=== PATIENT | male | born 1950 | race Caucasian/White ===

== ENCOUNTER 2016-10-28 09:09 | Outpatient (RCR) | payer MEDICARE ==
[2016-10-28 09:54] LABS: MEAN CORPUSCULAR HGB CONC 33.3 g/dL (31.0-37.0); PLATELET COUNT 206 10^3uL (150-450); WHITE BLOOD COUNT 5.13 10^3uL (4.0-11.0)
[2016-10-28 10:07] LABS: MEAN CORPUSCULAR HEMOGLOBIN 34.7 PG (26.0-34.0); MEAN CORPUSCULAR VOLUME 104 FL (80-100)
[2016-10-28 11:02] LABS: SEGMENTED NEUTROPHILS % 58 % (51-67)
[2016-10-28 11:03] LABS: ANISOCYTOSIS SLIGHT; BAND NEUTROPHILS % 2 % (0-6); EOSINOPHILS % 3 % (0-4); LYMPHOCYTES # 0.8 #; MONOCYTES # 1.1 #; MONOCYTES % 22 % (3-11); RBC MORPH SEE REFERENCE (NORMAL); TOTAL CELLS COUNTED 100
[2016-11-26 09:13] LABS: MEAN CORPUSCULAR HGB CONC 33.8 g/dL (31.0-37.0); MEAN PLATELET VOLUME 9.3 FL (6.0-9.5); PLATELET COUNT 194 10^3uL (150-450); WHITE BLOOD COUNT 10.03 10^3uL (4.0-11.0)
[2016-11-26 09:20] LABS: MEAN CORPUSCULAR HEMOGLOBIN 34.8 PG (26.0-34.0); MEAN CORPUSCULAR VOLUME 103 FL (80-100)
[2016-11-26 09:23] LABS: ALBUMIN 3.8 g/dL (3.4-5.0); ANION GAP 14.3 MEQ/L (3-15); CALCULATED IONIZED CALCIUM 4.5 mg/dL (3.8-4.6); PHOSPHORUS 4.5 mg/dL (2.4-4.9); TOTAL PROTEIN 5.9 g/dL (6.4-8.5)
[2016-11-26 10:18] LABS: BAND NEUTROPHILS % 0 % (0-6); EOSINOPHILS % 2 % (0-4); LYMPHOCYTES # 1.5 #; MONOCYTES # 1.2 #; MONOCYTES % 12 % (3-11); RBC MORPH NORMAL (NORMAL); SEGMENTED NEUTROPHILS % 71 % (51-67); TOTAL CELLS COUNTED 100
== END 2016-11-26 22:00 | disposition home or self-care (01) ==
LOC: LAB 09:09
PROVIDERS: ATTEND Internal Medicine Hematology & Oncology
DX: C20 Malignant neoplasm of rectum (principal)
CPT/HCPCS: 36415; 80053; 82378; 83615; 83735; 84100; 85007; 85025; 85027

== ENCOUNTER → 2016-11-28 | Outpatient (CLI) | payer MEDICARE ==
[~2016-11-28] MED LIST: ACYC200C PO; AMIO200T2 PO; ATOR40TA2 PO; CALC625T PO; CARV25TA30 PO; CHOL5POW MC; CLPD75T PO; DIGO250T PO; FERR-74 PO; HYDR-3702 PO; LSNP10T PO; LVT.1T PO; MAGN250T35 PO; METO25TA60 PO; NITR0.4T7 SL; ONDA8TAB13 PO; PRED20TA PO; WARF6TAB3 PO; WRF2T PO
--- NOTE | 2016-11-28 10:11 | Diagnostic Imaging Report ---
PROCEDURE: CT chest pelvis with and abdomen with and without contrast. TECHNIQUE: Multiple contiguous axial images were obtained through the chest, abdomen and pelvis after uneventful bolus administration of intravenous contrast. Precontrast acquisitions were acquired through the abdomen. INDICATION: Rectal carcinoma. COMPARISON: 02/28/2016. FINDINGS: THORAX: No pathologically enlarged lymph nodes are visible in the axilla, mediastinum or jackie. No pericardial or pleural effusion is identified. No pulmonary mass is identified. In the right lower lobe, areas of subpleural alveolar opacity are present. An ICD is present with the tip in the right ventricle. No osseous lesion is identified. Chronic elevation of the left hemidiaphragm is present. IMPRESSION: 1. Areas of subpleural alveolar opacity in the right lower lobe of undetermined etiology. Pneumonitis could produce this appearance. No evidence for metastasis. ABDOMEN AND PELVIS: COMPARISON: 02/28/2016. Comparing the hepatic lesions with the prior examination is difficult because the prior study was done in the arterial phase only. In the superior left lobe of the liver, a 2.1 x 1.2 cm mass is present. Previously, this mass was more solid-appearing. In the inferior lateral right lobe of the liver, a solid mass was identified measuring about 1.3 x 0.9 cm, currently 1.3 x 0.7 cm. Previously, solid mass was seen in the posterior subcapsular right lobe measuring 1.1 cm. On today's examination, this is measuring about 0.7 cm. 5 mm low-density area is noted in the medial segment of the left lobe and there are additional 6 and 4 mm hypodensities in the posterior right lobe. It is difficult to determine whether these have decreased in size since prior examination. The adrenal glands and pancreas are negative. No renal lesions are seen. The aorta was negative. No pathologically enlarged lymph nodes are seen in the gastrohepatic or gastrosplenic ligament. The periportal and retroperitoneal lymph nodes are negative. Mesenteric, iliac and inguinal lymph nodes remain negative. 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 No osteolytic lesion is seen. IMPRESSION: 1. Slight interval decrease in size of the hepatic lesions compared to prior study. Dictated by: Dictated on workstation # [id number]
== END ==
LOC: RAD 07:57
PROVIDERS: ATTEND Internal Medicine Hematology & Oncology
DX: C20 Malignant neoplasm of rectum (principal)
CPT/HCPCS: 71260; 74178; Q9967

== ENCOUNTER 2017-01-14 12:35 | Outpatient (RCR) | payer MEDICARE ==
[2017-01-14 12:36] LABS: BASOPHILS % (AUTO) 1 % (0-2); EOSINOPHILS # (AUTO) 0.1 10^3uL; EOSINOPHILS % (AUTO) 1 % (0-4); LYMPHOCYTES # (AUTO) 0.7 X10^3; MEAN CORPUSCULAR HEMOGLOBIN 33.7 PG (26.0-34.0); MEAN CORPUSCULAR HGB CONC 34.1 g/dL (31.0-37.0); MEAN CORPUSCULAR VOLUME 99 FL (80-100); MEAN PLATELET VOLUME 8.9 FL (6.0-9.5); MONOCYTES % (AUTO) 9 % (3-11); NEUTROPHILS # (AUTO) 9.2 X10^3; NEUTROPHILS % (AUTO) 82 % (51-67); PLATELET COUNT 221 10^3uL (150-450); WHITE BLOOD COUNT 11.19 10^3uL (4.0-11.0)
[2017-02-03 10:29] LABS: MEAN CORPUSCULAR HGB CONC 32.9 g/dL (31.0-37.0); MEAN PLATELET VOLUME 8.6 FL (6.0-9.5); PLATELET COUNT 218 10^3uL (150-450); WHITE BLOOD COUNT 5.07 10^3uL (4.0-11.0)
[2017-02-03 10:32] LABS: MEAN CORPUSCULAR HEMOGLOBIN 32.3 PG (26.0-34.0); MEAN CORPUSCULAR VOLUME 98 FL (80-100)
[2017-02-03 10:59] LABS: BAND NEUTROPHILS % 1 % (0-6); EOSINOPHILS % 5 % (0-4); LYMPHOCYTES # 0.9 #; MONOCYTES # 1.2 #; MONOCYTES % 24 % (3-11); RBC MORPH NORMAL (NORMAL); SEGMENTED NEUTROPHILS % 53 % (51-67); TOTAL CELLS COUNTED 100
[2017-02-25 09:55] LABS: MEAN CORPUSCULAR HGB CONC 33.6 g/dL (31.0-37.0); MEAN CORPUSCULAR VOLUME 96 FL (80-100); MEAN PLATELET VOLUME 8.8 FL (6.0-9.5); PLATELET COUNT 285 10^3uL (150-450); WHITE BLOOD COUNT 4.27 10^3uL (4.0-11.0)
[2017-02-25 09:57] LABS: MEAN CORPUSCULAR HEMOGLOBIN 32.3 PG (26.0-34.0)
[2017-02-25 10:22] LABS: BAND NEUTROPHILS % 6 % (0-6); EOSINOPHILS % 1 % (0-4); LYMPHOCYTES # 1.1 #; MONOCYTES # 1.1 #; MONOCYTES % 28 % (3-11); RBC MORPH NORMAL (NORMAL); SEGMENTED NEUTROPHILS % 39 % (51-67); TOTAL CELLS COUNTED 100
[2017-02-25 10:27] LABS: ALBUMIN 3.9 g/dL (3.4-5.0); CALCULATED IONIZED CALCIUM 4.1 mg/dL (3.8-4.6); MAGNESIUM* 2.1 mg/dL (1.6-2.3); TOTAL PROTEIN 6.9 g/dL (6.4-8.5)
[2017-03-18 09:58] LABS: MEAN CORPUSCULAR VOLUME 94 FL (80-100); MEAN PLATELET VOLUME 8.7 FL (6.0-9.5); PLATELET COUNT 285 10^3uL (150-450); WHITE BLOOD COUNT 4.31 10^3uL (4.0-11.0)
[2017-03-18 10:49] LABS: BAND NEUTROPHILS % 6 % (0-6); EOSINOPHILS % 3 % (0-4); MONOCYTES # 1.2 #; MONOCYTES % 30 % (3-11); RBC MORPH NORMAL (NORMAL); SEGMENTED NEUTROPHILS % 34 % (51-67); TOTAL CELLS COUNTED 100
== END 2017-04-14 | disposition home or self-care (01) ==
LOC: LAB 12:35
PROVIDERS: ATTEND Internal Medicine Hematology & Oncology
DX: C20 Malignant neoplasm of rectum (principal)
CPT/HCPCS: 36415; 80053; 82378; 83615; 83735; 84100; 85025

== ENCOUNTER → 2017-02-28 | Outpatient (CLI) | payer MEDICARE ==
--- NOTE | 2017-02-28 11:06 | Diagnostic Imaging Report ---
PROCEDURE: CT chest pelvis with and abdomen with and without contrast. TECHNIQUE: Multiple contiguous axial images were obtained through the chest, abdomen and pelvis after uneventful bolus administration of intravenous contrast. Precontrast acquisitions were acquired through the abdomen. INDICATION: INDICATION: Colon CA with known liver metastases. COMPARISON: Comparison with 11/28/2016. The IV contrast dose was decreased 50% due to patient's elevated creatinine. FINDINGS: CT CHEST: Good opacification of the aorta and pulmonary arteries. The aortic root measures 4 cm. There is mild atelectasis or scarring in the left lung base. No parenchymal masses have developed. No pleural effusion or pericardial effusion. No hilar adenopathy of pathologic size. Coronary artery calcification noted. No blastic or lytic lesions are present on today's exam. IMPRESSION: No changes have occurred to the chest to suggest metastatic disease. CT ABDOMEN AND PELVIS: The previously reported liver lesions are again identified. Virtually all of the previously measured lesions have increased in size. The superior left lobe lesion now measures 2.9 x 2.1 cm, previously measuring 2.1 x 1.2 cm. Inferior lateral lesion previously measuring 1.3 x 0.7 cm now measures 1.7 x 0.7 cm. The posterior medial subcapsular lesion now measures 14 mm previously measuring 7 mm. There are multiple additional hypodense lesions following IV contrast that have developed throughout. Gallbladder appears normal. Bile ducts are not dilated. Pancreas is normal. The spleen appears normal. Adrenal glands are not enlarged. The kidneys show no evidence of obstruction, masses or calculi. There is normal enhancement of both kidneys following IV contrast. Aorta and abdominal vessels appear normal with mild atherosclerotic disease. No intra-abdominal adenopathy of pathologic size is present. Ileostomy noted in the right lower quadrant. Oral contrast present and the small bowel shows no evidence of obstruction. There is some stool in the ascending colon with remainder of the colon contracted. No mesenteric adenopathy is demonstrated. Bone windows show no blastic or lytic lesions. IMPRESSION: 1. Multiple hypodense lesions throughout the liver on the contrasted study throughout both right and left lobe. These have increased in number and size when compared with previous exam. See detail above. 2. No evidence of intra-abdominal adenopathy developing. 3. Bowel appears normal. Dictated by: Dictated on workstation # [id number]
== END ==
LOC: RAD 09:08
PROVIDERS: ATTEND Internal Medicine Hematology & Oncology
DX: C20 Malignant neoplasm of rectum (principal)
CPT/HCPCS: 71260; 74178; Q9967